=== PATIENT | male | born 1965 | race Caucasian/White ===

== ENCOUNTER 2017-09-20 02:53 | Inpatient (IN) | payer OTHER, MEDICAID ==
[~2017-09-20] VITALS: Ht 177.8 cm; Wt 111.6 kg
[2017-09-20] MEDS ORDERED: NEURONTIN 300300 M1 PO (02:57)
[2017-09-20] MEDS ORDERED: TOPROL XL25 MG PO (02:57)
[2017-09-20] MEDS ORDERED: KLOR-CON 1010 MEQ PO (02:57)
[2017-09-20] MEDS ORDERED: GLUCOPHAGE1000 MG PO (02:57)
[2017-09-20] MEDS ORDERED: OCUVITE EYE +1 EACH PO (02:58)
[2017-09-20] MEDS ORDERED: LISINOPRIL20 MG PO (02:58)
[2017-09-20] MEDS ORDERED: LASIX 20 MG TAB20 MG PO (02:58)
[2017-09-20] MEDS ORDERED: SIMVASTATIN40 MG PO (02:58)
[2017-09-20] MEDS ORDERED: HUMALOG100 UNIT/1 SUBQ (02:59)
[2017-09-20] MEDS ORDERED: LEVEMIR SUBQ (02:59)
[2017-09-20 03:23] LABS: ABSOLUTE EOSINOPHILS 0.1 thou/uL (0.0-0.7); ABSOLUTE LYMPHOCYTES 1.2 thou/uL (0.8-5.3); ABSOLUTE MONOCYTES 0.6 thou/uL (0.0-1.2); ABSOLUTE NEUTROPHILS 6.6 thou/uL (1.6-8.1); BASOPHILS 0.4 %; EOSINOPHILS 0.9 %; HEMATOCRIT 44.4 % (42.0-52.0); HEMOGLOBIN 14.9 gm/dL (14.0-18.0); LYMPHOCYTES 13.5 %; MCH 30.3 pg (26.0-34.0); MCHC 33.6 g/dL (28.0-37.0); MCV 90.1 fL (80.0-100.0); MONOCYTES 7.4 %; MPV 9.4 fl. (7.2-11.1); NUCLEATED RBCS 0 /100WBC; PLATELET COUNT* 165 thou/uL (150-400); POLYS 77.8 %; RBC 4.93 mil/uL (4.50-6.00); RDW-CV 13.3 % (10.5-14.5); WBC 8.5 thou/uL (4.0-11.0)
[2017-09-20 03:28] LABS: CALCIUM 9.2 mg/dL (8.5-10.1); CREATININE 0.9 mg/dL (0.6-1.3); POTASSIUM 4.4 mmol/L (3.5-5.1)
[2017-09-20 03:34] LABS: ALBUMIN 3.3 g/dL (3.4-5.0); TOTAL BILIRUBIN 0.4 mg/dL (<0.1-1.0); TOTAL PROTEIN 6.9 g/dL (6.4-8.2)
[2017-09-20 06:01] LABS: URINE BILIRUBIN NEGATIVE (Negative); URINE BLOOD NEGATIVE (Negative); URINE CLARITY CLEAR; URINE COLOR YELLOW; URINE GLUCOSE-RANDOM 3+ (Negative); URINE KETONES 2+ (Negative); URINE LEUKOCYTES-REFLEX NEGATIVE (Negative); URINE NITRITE-REFLEX NEGATIVE (Negative); URINE PROTEIN NEGATIVE (Negative); URINE SPECIFIC GRAVITY <= 1.005 (1.005-1.030); URINE UROBILINOGEN 0.2 E.U./dl (0.2-1.0)
[2017-09-20 06:38] VITALS: BP 148/87
[2017-09-20 08:22] VITALS: BP 138/71
--- NOTE | 2017-09-20 10:13 | NUR ---
ASSUMED CARE OF PATIENT AT 0700. PATIENT AWAKE, ALERT, AND ORINETED APPROPRIATELY. ADMISSION ASSESSMENT AND DOCUMENTATION COMPLETED. PATIENT IS UP AD KAROLYN. USES CALL LIGHT APPROPRIATELY. NURSING WILL CONTINUE TO MONITOR.
--- NOTE | 2017-09-20 11:16 | NUR ---
SCHEDULED MEDICATIONS GIVEN, SEE EMAR FOR DOCUMENTATION. PATIENT DECLINED PRN PAIN MEDICATIONS HE SAID EATING CLEAR LIQUIDS MADE HIS PAIN GO AWAY. VITAL SIGNS STABLE. OXYGEN SATURATION WITHIN NORMAL LIMITS ON ROOM AIR. PATIENT IS UP AD KAROLYN IN ROOM. DENIES NEEDS AT THIS TIME. USES CALL LIGHT APPROPRIATELY, WITHIN REACH. NURSING WILL CONTINUE TO MONITOR.
--- NOTE | 2017-09-20 17:38 | NUR ---
NO CHANGE IN PATIENT STATUS. HAS BEEN UP AD KAROLYN IN ROOM WITHOUT DIFFICULTY. USES CALL LIGHT APPROPRIATELY. HAS NOT COMPLAINED OF ANY ABDOMINAL PAIN TODAY. DENIES NEEDS AT THIS TIME. CALL LIGHT WITHIN REACH. NURSING WILL CONTINUE TO MONITOR.
--- NOTE | 2017-09-20 17:42 | NUR ---
CM UNABLE TO SEE PT.TODAY DUE TO SCHEDULING. WILL SEE IN AM.
--- NOTE | 2017-09-20 18:07 | NUR ---
HEMOVAC REMOVED FROM LEFT KNEE. PRESSURE DRESSING IN PLACE.
[2017-09-20 21:10] VITALS: BP 114/68
[2017-09-21 04:05] LABS: HEMATOCRIT 40.3 % (42.0-52.0); HEMOGLOBIN 13.8 gm/dL (14.0-18.0); MCH 30.3 pg (26.0-34.0); MCHC 34.2 g/dL (28.0-37.0); MCV 88.7 fL (80.0-100.0); RBC 4.54 mil/uL (4.50-6.00); RDW-CV 13.5 % (10.5-14.5); WBC 7.5 thou/uL (4.0-11.0)
[2017-09-21 04:31] LABS: ALBUMIN 2.6 g/dL (3.4-5.0); CREATININE 0.8 mg/dL (0.6-1.3); MAGNESIUM 1.7 mg/dL (1.8-2.4); POTASSIUM 3.7 mmol/L (3.5-5.1); TOTAL BILIRUBIN 0.3 mg/dL (<0.1-1.0); TOTAL PROTEIN 5.4 g/dL (6.4-8.2)
--- NOTE | 2017-09-21 05:12 | NUR ---
PATIENT ALERT AND ORIENTED. VITALS STABLE. RA. DENIES PAIN AND NAUSEA. UP INDEPENDENTLY IN ROOM. FLUIDS INFUSING PER ORDER. NO SIGNS OF ANY ADVERSE REACTIONS TO ANTIBIOTIC THERAPY. INSTRUCTED TO CALL FOR ASSISTANCE. HOURLY ROUNDS. NURSING WILL CONTINUE TO MONITOR.
[2017-09-21 08:01] VITALS: BP 107/67
--- NOTE | 2017-09-21 09:47 | NUR ---
ASSUMED CARE OF PATIENT AFTER REPORT THIS MORNING. PATIENT AWAKE, ALERT, AND ORIENTED APPROPRIATELY. PHYSICAL ASSESSMENT COMPLETED AND CHARTED. NO COMPLAINTS OF PAIN. SCHEDULED MEDICATIONS GIVEN, SEE EMAR FOR DOCUMENTATION. VITAL SIGNS STABLE. OXYGEN SATURATION WNL ON ROOM AIR. PATIENT IS UP AD KAROLYN. USES CALL LIGHT APPROPRIATELY. DENIES NEEDS AT THIS TIME. NURSING WILL CONTINUE TO MONITOR.
[2017-09-21 10:06] VITALS: BP 107/67
--- NOTE | 2017-09-21 12:43 | NUR ---
RECEIVED ORDERS TO DISCHARGE PATIENT. DISCHARGE PAPERWORK COMPLETED AND SIGNED BY APPROPRIATE PARTIES, DISCUSSED WITH PATIENT, ON PATIENT'S CHART. NO SCRIPTS WRITTEN TO GIVE TO PATIENT. DISCUSSED FOLLOWING UP WITH A PRIMARY CARE PHYSICIAN IN ONE WEEK. PATIENT VERBALIZED UNDERSTANDING. IV DISCONTINUED. PATIENT DISCHARGED AT 1236.
== END 2017-09-21 12:36 | disposition home or self-care (01) | DRG 391 ==
LOC: M.ERS 02:53 → M.TBA-ER 05:18 → M.ORTHSURG 05:18
PROVIDERS: Emergency Medicine; Internal Medicine; ADMIT Internal Medicine
DX: A08.4 Viral intestinal infection, unspecified (principal); E11.00 Type 2 diabetes mellitus with hyperosmolarity without nonketotic hyperglycemic-hyperosmolar coma (NKHHC); E87.1 Hypo-osmolality and hyponatremia; E11.65 Type 2 diabetes mellitus with hyperglycemia; E88.09 Other disorders of plasma-protein metabolism, not elsewhere classified; E78.5 Hyperlipidemia, unspecified; Z85.828 Personal history of other malignant neoplasm of skin; Z95.1 Presence of aortocoronary bypass graft; Z79.4 Long term (current) use of insulin; Z88.5 Allergy status to narcotic agent; Z79.899 Other long term (current) drug therapy